=== PATIENT | female | born 1930 | race Caucasian/White ===

== ENCOUNTER → 2016-10-26 | Outpatient (CLI) | payer MEDICARE, OTHER ==
[~2016-10-26] MED LIST: ASPIRIN LO-DOSE81 MG PO; COREG6.25 MG PO; DIOVAN160 MG PO; EFFEXOR75 MG PO; FLOMAX0.4 MG PO; LIPITOR40 MG PO; MAGOX 400400 MG PO; MULTIPLE VITAM1 EACH PO; NORVASC5 MG PO; POTASSIUM CHLO10 MEQ PO; REQUIP2 MG PO; TYLENOL325 MG PO; VITAMIN B-122500 MCG PO; VITAMIN D35000 UNI1 PO
== END | disposition disaster alternative care site (69) ==
LOC: GRAD 12:51
DX: E22.2 Syndrome of inappropriate secretion of antidiuretic hormone (principal); I67.82 Cerebral ischemia; G31.9 Degenerative disease of nervous system, unspecified; I72.8 Aneurysm of other specified arteries

== ENCOUNTER → 2016-11-04 | Outpatient (CLI) | payer MEDICARE, OTHER | END | disposition disaster alternative care site (69) | LOC: GRAD 13:49 | DX: I72.9 Aneurysm of unspecified site (principal); I67.1 Cerebral aneurysm, nonruptured; I67.82 Cerebral ischemia ==